=== PATIENT | female | born 1970 | race African-American/Black ===

== ENCOUNTER 2024-07-24 22:41 | Emergency (ER) | payer MEDICAID ==
[~2024-07-24] VITALS: Ht 165.1 cm; Wt 64.3 kg
[2024-07-24 23:01] VITALS: O2SAT 97
[2024-07-25] MEDS: TRAMADOL HCL/ACETAMINOPHEN 37.5/325MG TABLET PO ONE (01:42)
[2024-07-25] MEDS ORDERED: TRAM-534 MT (01:55)
[2024-07-25 02:11] VITALS: BP 118/75; PULSE 79; RESP 18; TEMP 36.8; O2SAT 99
== END 2024-07-25 02:12 | disposition home or self-care (01) ==
LOC: ER 22:41
DX: S46.912A Strain of unspecified muscle, fascia and tendon at shoulder and upper arm level, left arm, initial encounter (principal); Z91.048 Other nonmedicinal substance allergy status; X50.0XXA Overexertion from strenuous movement or load, initial encounter; Y93.89 Activity, other specified; Y92.89 Other specified places as the place of occurrence of the external cause; Y99.8 Other external cause status
CPT/HCPCS: 73030; 99284